=== PATIENT | female | born 1995 | race Caucasian/White ===

== ENCOUNTER 2022-11-26 20:36 | Emergency (ER) | payer OTHER ==
[~2022-11-26] VITALS: Ht 167.6 cm; Wt 122.5 kg
[2022-11-26 21:04] VITALS: O2SAT 97
[2022-11-26] MEDS ORDERED: IBUPROFEN 600MG TABLET PO STA (22:16)
[2022-11-26] MEDS ORDERED: BACITRACIN ZINC OINT UDPKT TOP ONE ×2 (22:30)
[2022-11-26] MEDS ORDERED: SULF1TAB48 PO (23:42)
[2022-11-26] MEDS ORDERED: NAPR-681 PO (23:42)
[2022-11-27 00:10] VITALS: BP 150/96; PULSE 84; RESP 20; TEMP 98.2
== END 2022-11-27 00:16 | disposition home or self-care (01) ==
LOC: ER 20:36
DX: S50.312A Abrasion of left elbow, initial encounter (principal); S80.212A Abrasion, left knee, initial encounter; S80.211A Abrasion, right knee, initial encounter; V00.131A Fall from skateboard, initial encounter; Y93.89 Activity, other specified; Y92.89 Other specified places as the place of occurrence of the external cause; Y99.8 Other external cause status
CPT/HCPCS: 73080; 73562; 81025; 99284